=== PATIENT | male | born 1975 | race Caucasian/White ===

== ENCOUNTER 2016-12-20 09:44 | Emergency (ER) | payer OTHER ==
--- NOTE | ~2016-12-20 | CR72 ---
[facility] A Service [facility] RADIOLOGY TEXT RESULTS PATIENT: CECI CHAPARRO LOCATION: SED : 79 UNIT #: [id number] AGE: [address]: ESTEFANIA HICKEY SEX: M ORDER DR: [id number] [place] [id number] E MR#: [id number] Acc #: [id number] NAME: CECI CHAPARRO : 1975 SEX: M STUDY DATE/TIME: 12/20/2016 10:01 UNIT: SED ROOM: STUDY DESCRIPTION: CR Chest Single View Portable Attending Physician: Estefania Hickey Aprn Ordering Physician: Kevin Douglass M.D. Primary Care Physician: Primary Care Physician No MEDICAL IMAGING REPORT This report is preliminary unless electronic signature is present. EXAM Chest portable, 12/20/2016 10:01 hours HISTORY 41-year-old man complaining of chest pain radiating into left scapula since 12/15/2016. COMPARISON 02/10/2013 FINDINGS Portable upright chest demonstrates slightly lower lung volumes than on the prior study. Heart size is at the upper limits of normal. Mediastinal, hilar contours are normal. The aorta appears normal. The lungs are clear and there are no effusions. IMPRESSION Slightly lower lung volumes than on 02/10/2013. Heart size is at the upper limits of normal. The lungs are clear. There is no effusion or pneumothorax. Dictated by... Cindi James M.D. THIS IS AN ELECTRONICALLY VERIFIED REPORT Cindi James M.D. at 12/20/2016 2:31 PM ARLEY/diallo TD: 12/20/2016 11:03 JOB #: [id number] MEDICAL IMAGING REPORT [facility] A Service [facility] RADIOLOGY TEXT RESULTS PATIENT: CECI CHAPARRO LOCATION: SED : 77 UNIT #: [id number] AGE: [address]: ESTEFANIA HICKEY SEX: M ORDER DR: Page 1 of 1
--- NOTE | ~2016-12-20 | EKG ---
PATIENT: CECI CHAPARRO UNIT #: [id number] Ventricular Rate: 96 BPM Atrial Rate: 96 BPM P-R Interval: 150 ms QRS Duration: 84 ms Q-T Interval: 358 ms QTC Calculation(Bezet): 452 ms P [place]: 51 degrees Calculated R [place]: 46 degrees Calculated T [place]: 3 degrees Diagnosis Line: Normal sinus rhythm Diagnosis Line: Normal ECG Baseline wander Diagnosis Line: When compared with ECG of 10-FEB-2013 19:04, Diagnosis Line: No significant change was found Diagnosis Line: Confirmed by JOHNY BELL MD ([id number]) on 12/21/2016 Diagnosis Line: 7:03:21 PM INTERPRETING MD: ARABELLA CRUZ
[~2016-12-20 09:44] MED LIST: DICLOFENAC PO; HYDROCODON-ACE1 EAC9 PO; NAPROSYN500 MG PO; NO MEDICATIONS; PREDNISONE PO; ROBAXIN500 MG PO
[2016-12-20] MEDS ORDERED: ZANAFLEX (09:50)
[2016-12-20] MEDS ORDERED: NEURONTIN (09:50)
[2016-12-20] MEDS ORDERED: ZYRTEC (09:50)
[2016-12-20] MEDS ORDERED: ATARAX (09:50)
[2016-12-20 10:00] LABS: BASOPHIL# 0.1 X10e3 (0-0.3); BASOPHIL% 1.3 % (0-2.5); DIFF IND NO; EOSINOPHIL# 0.1 X10e3 (0-0.7); EOSINOPHIL% 1.3 % (0.0-7.0); HEMATOCRIT 44.1 % (38.0-50.0); LYMPHOCYTE% 31.5 % (17.0-45.0); MEAN CELL VOLUME 86.2 FL (83-96); MEAN CORPUSCULAR HEMOGLOBIN 29.3 PG (28-34); MEAN PLATELET VOLUME 7.8 FL (6.5-11.5); MONOCYTE# 0.5 X10e3 (0-1.0); MONOCYTE% 8.3 % (3.0-12.0); NEUTROPHIL# 3.7 X10e3 (1.5-7.1); NEUTROPHIL% 57.6 % (40-75); PLATELET COUNT 268 X10e3 (140-420); RED BLOOD COUNT 5.12 X10e (3.90-5.60); RED CELL DISTRIBUTION WIDTH 14.4 % (11.0-15.5); WHITE BLOOD COUNT 6.5 X10e3 (4.0-10.5)
[2016-12-20 10:10] LABS: PROTHROMBIN TIME (PATIENT) 11.7 SECONDS (9.5-12.4)
[2016-12-20 10:17] LABS: PARTIAL THROMBOPLASTIN TIME 28.3 SECONDS (25.6-38.1)
[2016-12-20 10:19] LABS: ALBUMIN SERUM 4.7 g/dL (3.5-5.0); BILIRUBIN, DIRECT 0.1 mg/dL (0.0-0.2); BILIRUBIN,INDIRECT 0.7 mg/dL (0.0-0.9); BILIRUBIN,TOTAL 0.8 mg/dL (0.2-2.0); BUN/CREATININE RATIO 16.66; CALCIUM SERUM 8.9 mg/dL (8.4-10.2); CREATININE SERUM 0.9 mg/dL (0.6-1.4); GLOM FILT RATE Estimated 107.2 mL/min (>60); POTASSIUM 3.9 mmol/L (3.5-5.1)
[2016-12-20 11:44] LABS: POC - CKMB <1.0 ng/mL (0.0-7.9)
[2016-12-20 11:45] LABS: POC - MYOGLOBIN 66.3 ng/mL (0.0-169.0); POC - TROPONIN <0.05 ng/mL (<=0.05)
== END 2016-12-20 12:29 | disposition home or self-care (01) ==
LOC: SED 09:44
PROVIDERS: Nurse Practitioner Family
DX: R07.9 Chest pain, unspecified (principal); K21.9 Gastro-esophageal reflux disease without esophagitis
CPT/HCPCS: 36415; 71010; 80048; 80076; 82553; 83874; 84484; 85025; 85610; 85730; 93005; 96374; 99285; J1885